=== PATIENT | male | born 1985 | race African-American/Black ===

== ENCOUNTER 2016-03-29 11:47 | Emergency (ER) | payer SELFPAY ==
[~2016-03-29] VITALS: Ht 170.2 cm; Wt 70.0 kg
[2016-03-29 11:49] VITALS: BP 127/73; PULSE 70; RESP 14; TEMP 98.6; O2SAT 99
--- NOTE | 2016-03-29 12:32 | PD ---
HPI Chief Complaint: Injury Time Seen by Provider: 12:32 Travel History International Travel<30 days: No Contact w/Intl Traveler<30days: No Traveled to known affect area: No History of Present Illness HPI 30-year-old male presents to the emergency department for evaluation right foot pain, intermittently occurring over the last several months. 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 He is uncertain if he needs new shoes. He is hoping that nothing is broken or wrong with his foot. He does not recall any injury. He has not taken anything for his pain. He is currently wearing flip-flops and ambulatory. He has no other symptoms to report at this time. Allergies-Medications (Allergen,Severity, Reaction): Coded Allergies: No Known Allergies (Unverified , 03/29/16) Reported Meds & Prescriptions Reported Meds & Active Scripts Active No Active Prescriptions or Reported Medications Review of Systems Except as stated in HPI: all other systems reviewed are Neg Physical Exam Narrative GENERAL: Well-nourished, well-developed and nourished male patient, ambulatory and in no acute distress SKIN: Warm and dry. HEAD: Normocephalic. EYES: No scleral icterus. No injection or drainage. NECK: Supple, trachea midline. No JVD or lymphadenopathy. CARDIOVASCULAR: Regular rate and rhythm without murmurs, gallops, or rubs. RESPIRATORY: Breath sounds equal bilaterally. No accessory muscle use. MUSCULOSKELETAL: No cyanosis, or edema. Formerly. No tenderness. Palpation of the right foot. Distal pulses are palpable. Cap refills within normal limits. BACK: Nontender without obvious deformity. No CVA tenderness. Data Data Last Documented VS Vital Signs Date Time Temp Pulse Resp B/P Pulse Ox O2 Delivery O2 Flow Rate FiO2 03/29/16 11:49 98.6 70 14 127/73 99 Room Air MDM Medical Screen Exam Complete: Yes Emergency Medical Condition: No Differential Diagnosis R foot pain; plantar faciitis Narrative Course 30-year-old male presents to emergency department for evaluation right foot pain. Patient has no injury to report. No deformity. He is able to bear weight. This is likely plantar fasciitis and I encouraged that he get new shoes with more support rather than flip-flops if he is on his feet for several hours a day. I also encouraged [id number] anti-inflammatory such as ibuprofen. At this time there are no urgent or emergent needs for medical intervention identified. A medical screening exam was performed: At the time of evaluation the presenting medical condition was determined not to be of an emergent nature. The patient was given the option of receiving additional care, but declined. Patient was given options for additional community resources from which to obtain care. The Patient Has Been advised to seek medical attention for their presenting complaint. The patient has been advised to return to the ER at any time if an emergent condition develops. Primary Impression: Encounter for medical screening examination Scripts No Active Prescriptions or Reported Meds Condition: Carolyn Wells Mar 29, 2016 12:32
== END 2016-03-29 12:49 | disposition left against medical advice (07) ==
LOC: NETRI 11:47
DX: M79.671 Pain in right foot (principal)
CPT/HCPCS: 99281